=== PATIENT | female | born 2000 | race Caucasian/White ===

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

== ENCOUNTER 2018-02-18 22:24 | Emergency (ER) | payer SELFPAY ==
[~2018-02-18] VITALS: Ht 160 cm; Wt 54.5 kg
[~2018-02-18 22:24] MED LIST changes: +EPIPEN 2-PAK1 MG/ML MR
[2018-02-19 00:01] VITALS: BP 112/56
== END 2018-02-19 00:01 | disposition home or self-care (01) ==
LOC: ED 22:24
DX: J06.9 Acute upper respiratory infection, unspecified (principal); R20.8 Other disturbances of skin sensation

== ENCOUNTER 2018-03-21 15:12 | Emergency (ER) | payer SELFPAY ==
[~2018-03-21] VITALS: Ht 160 cm; Wt 52.3 kg
[2018-03-21 17:53] VITALS: BP 124/68
== END 2018-03-21 17:57 | disposition home or self-care (01) ==
LOC: ED 15:12
DX: R51 Headache (principal)
CPT/HCPCS: J1200; J2405; J7030

== ENCOUNTER → 2018-11-11 | Outpatient (CLI) | payer BC ==
[2018-11-11 18:50] LABS: BASO # 0.1 (0.02-0.10); EOS # 0.2 (0.04-0.40); EOS % 1.6 % (0.1-4.0); HEMATOCRIT 43.9 % (35.0-45.0); HEMOGLOBIN 14.9 g/dL (12.0-15.0); LYMPH# 2.7 (1.20-3.40); MEAN CELL VOLUME 84 fl (78-95); MEAN CORPUSCULAR HEMOGLOBIN 28 pg (26-32); MEAN CORPUSCULAR HGB CONC 34 g/dL (33-37); MEAN PLATELET VOLUME 10.4 fl (7.4-10.4); MONO # 0.8 (0.10-0.60); NEU # 6.3 (1.40-6.50); PLATELET COUNT 281 K/mm3 (130-400); RED BLOOD COUNT 5.26 M/mm3 (4.10-5.30); RED CELL DISTRIBUTION WIDTH 12.8 % (11.5-14.5); WHITE BLOOD COUNT 10.1 K/mm3 (4.8-10.8)
== END ==
LOC: LAB 18:36
PROVIDERS: Nurse Practitioner
DX: N92.0 Excessive and frequent menstruation with regular cycle (principal)

== ENCOUNTER 2019-10-29 21:53 | Emergency (ER) | payer BC ==
[~2019-10-29] VITALS: Ht 160 cm; Wt 57.7 kg
[2019-10-29] MEDS ORDERED: CEPHALEXIN500 M1 PO (22:07)
[2019-10-29 23:03] VITALS: BP 126/81
== END 2019-10-29 23:03 | disposition home or self-care (01) ==
LOC: ED 21:53
DX: L03.032 Cellulitis of left toe (principal); M79.672 Pain in left foot; F17.290 Nicotine dependence, other tobacco product, uncomplicated; Z23 Encounter for immunization
CPT/HCPCS: 90715; J0696